=== PATIENT | male | born 1965 | race Caucasian/White ===

== ENCOUNTER → 2025-01-15 07:09 | Outpatient (REF) | payer OTHER, SELFPAY ==
[2025-01-15 09:53] LABS: Urine Albumin 1+ (Neg - Trace); Urine Bilirubin Negative (Negative); Urine Character Clear (Clear); Urine Color Yellow; Urine Glucose Negative (Negative); Urine Ketone Negative (Negative); Urine Leukocyte Negative (Negative); Urine Nitrite Negative (Negative); Urine Occult Blood Negative (Negative); Urine Specific Gravity 1.015 (<1.030); Urine Urobilinogen Negative (Neg - 1+)
[2025-01-15 10:03] LABS: % Basophils 1.2 % (0-2); % Immature Granulocytes 0.4 % (0-0.5); % Lymphocytes 38.9 % (20.5-51.1); % Monocytes 10.2 % (1.7-9.3); % Neutrophils 47.3 % (42.2-75.2); Absolute Basophils 0.1 10^3/uL (0-0.2); Absolute Eosinophils 0.1 10^3/uL (0-0.7); Absolute Monocytes 0.5 10^3/uL (0.1-0.6); Absolute Neutrophils 2.4 10^3/uL (1.4-6.5); Hematocrit 42.9 % (39.0-52.0); Hemoglobin 14.5 g/dL (13.0-18.0); Mean Corp Hgb Conc. 33.8 g/dL (33.0-37.0); Mean Corpuscular Hgb 28.4 pg (27.0-31.0); Mean Corpuscular Volume 84.1 fL (80.0-94.0); Mean Platelet Volume 12.2 fL (7.4-10.4); Nucleated Red Blood Cells % 0 % (-); Platelet Count 221 10^3/uL (130-400); Red Cell Dist. Width 13.2 % (11.5-14.5); White Blood Cell Count 5.1 10^3/uL (4.8-10.8)
[2025-01-15 10:34] LABS: ALT (SGPT) 23 U/L (0-50); AST (SGOT) 23 U/L (17-59); Albumin 4.5 g/dl (3.5-5.0); Alkaline Phosphatase 53 U/L (38-126); Blood Urea Nitrogen 20 mg/dl (9-20); Calcium 9.4 mg/dl (8.4-10.2); Carbon Dioxide 25 mmol/L (22-30); Chloride 104 mmol/L (98-107); Glucose 93 mg/dl (70-99); HDL Cholesterol 57 mg/dl; LDL Cholesterol, Calculated 156 mg/dl; Potassium 4.2 mmol/L (3.5-5.1); Sodium 140 mmol/L (135-145); Total Bilirubin 0.7 mg/dl (0.2-1.3); Total Cholesterol 246 mg/dl (50-199); Total Protein 6.9 g/dl (6.3-8.2); Triglyceride 167 mg/dl (10-149); Very Low Density Lipoprotein 33 mg/dl (0-30); eGFR > 60.00
[2025-01-15 10:35] LABS: Urine Squamous Cell 0-2 /LPF (Few)
[2025-01-15 10:36] LABS: Urine Red Blood Cell 0-2 /HPF (0-2)
[2025-01-15 10:57] LABS: PSA, Total - Screen 1.31 ng/ml (0.0-4.0); TSH Reflex To Free T4 1.76 uIU/ml (0.47-4.68)
== END ==
LOC: HWLAB 07:09
PROVIDERS: ATTENDING PHYSICIAN Nurse Practitioner Adult Health
DX: Z00.01 Encounter for general adult medical examination with abnormal findings (principal); E55.9 Vitamin D deficiency, unspecified; Z12.5 Encounter for screening for malignant neoplasm of prostate
CPT/HCPCS: 36415; 80053; 80061; 81003; 81015; 82306; 84443; 85025; G0103